=== PATIENT | female | born 1965 | race Two or more races ===

== ENCOUNTER 2020-03-31 13:53 | Outpatient (CLI) | payer OTHER | END 2020-03-31 14:07 | disposition home or self-care (01) | LOC: MAMO-SONO 13:53 | PROVIDERS: ATTEND Obstetrics & Gynecology | DX: Z12.31 Encounter for screening mammogram for malignant neoplasm of breast (principal); N60.11 Diffuse cystic mastopathy of right breast; N60.12 Diffuse cystic mastopathy of left breast ==

== ENCOUNTER 2020-04-23 08:10 | Outpatient (CLI) | payer OTHER | END 2020-04-23 08:20 | disposition home or self-care (01) | LOC: NUCLEAR 08:10 | PROVIDERS: ATTEND Internal Medicine Cardiovascular Disease | DX: M12.9 Arthropathy, unspecified (principal); M19.91 Primary osteoarthritis, unspecified site | CPT/HCPCS: 78315; A9503 ==

== ENCOUNTER 2020-05-08 09:17 | Day surgery (SDC) | payer OTHER | END 2020-05-08 14:40 | disposition home or self-care (01) | LOC: AMB-ENDOS 09:17 | PROVIDERS: ATTEND Colon & Rectal Surgery | DX: K62.89 Other specified diseases of anus and rectum (principal); Z12.11 Encounter for screening for malignant neoplasm of colon ==

== ENCOUNTER 2021-06-03 07:42 | Outpatient (CLI) | payer OTHER | END 2021-06-03 07:56 | disposition home or self-care (01) | LOC: MAMO-SONO 07:42 | PROVIDERS: ATTEND Obstetrics & Gynecology | DX: N60.11 Diffuse cystic mastopathy of right breast (principal); N60.12 Diffuse cystic mastopathy of left breast; Z12.31 Encounter for screening mammogram for malignant neoplasm of breast ==

== ENCOUNTER 2022-06-20 11:10 | Outpatient (CLI) | payer OTHER | END 2022-06-20 11:22 | disposition home or self-care (01) | LOC: MAMO-SONO 11:10 | PROVIDERS: ATTEND Obstetrics & Gynecology | DX: Z12.31 Encounter for screening mammogram for malignant neoplasm of breast (principal); N60.11 Diffuse cystic mastopathy of right breast; N60.12 Diffuse cystic mastopathy of left breast ==